=== PATIENT | female | born 1965 | race Caucasian/White ===

== ENCOUNTER → 2016-07-10 | Outpatient (CLI) | payer BC ==
[~2016-07-10] MED LIST: METF500T4; TRIA1TAB3
[2016-07-10 16:09] LABS: BILIRUBIN,URINE Negative (Negative); CLARITY,URINE Cloudy; COLOR,URINE Yellow; GLUCOSE, URINE (UA) Trace (Negative); LEUKOCYTE ESTERASE ,URINE Negative (Negative); PH,URINE 5.5 (5.0 - 8.0); UROBILINOGEN,URINE 0.2 mg/dL (0.2-1.0)
[2016-07-10 16:24] LABS: URINE CENTRIFUGED VOLUME 12 mL
== END ==
LOC: LAB 15:48
PROVIDERS: ATTEND Family Medicine
DX: R30.0 Dysuria (principal)
CPT/HCPCS: 81003; 81015

== ENCOUNTER → 2016-08-04 | Outpatient (CLI) | payer OTHER, BC ==
--- NOTE | 2016-08-04 17:40 | Diagnostic Imaging Report ---
INDICATION: Great toe injury. FINDINGS: AP, lateral and oblique views of the left great toe are obtained. There is no evidence of fracture or malalignment. 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 IMPRESSION: No acute abnormality is identified. 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 Dictated by: Dictated on workstation # [id number]
== END ==
LOC: RAD 15:31
PROVIDERS: ATTEND Family Medicine
DX: M79.675 Pain in left toe(s) (principal)